=== PATIENT | male | born 1960 | race Caucasian/White ===

== ENCOUNTER 2018-11-18 07:25 | Outpatient (CLI) | payer BC ==
--- NOTE | 2018-11-18 08:37 | MRI ---
MRI of left knee performed without contrast HISTORY: Left knee pain and swelling. COMPARISON: None. FINDINGS: The anterior as well as posterior cruciate ligaments are intact. There is some increased si gnal change of the root of the posterior horn of the lateral meniscus suggesting some fraying or a low grade tear. No meniscal protrusion is seen associated with this. The medial meniscus shows a nondisplaced flap type tear involving the free edge of the posterior horn with horizontal extension of the tear into the body of the meniscus. The free edge of the body of the meniscus is minimally blunted. 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 The medial and lateral collateral ligaments and iliotibial band regions are normal. The patellar articular cartilage is intact. The medial lateral patellar retinaculum are normal. Quadr iceps and patellar tendons are normal. IMPRESSION: 1. Mild increased signal change of the root of the posterior horn lateral meniscus suggesting a small re-tear or fraying of the meniscus at this level. 2. Flap type tear of the posterior horn and body region of the medial meniscus. The tear appears to b egin is a free edge tear involving the posterior horn with horizontal extension into the body of the meniscus to the meniscocapsular junction. 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 There are marrow edema changes involving the medial edge of the tibia associated with some grade IV chondromalacia change and a small subchond ral insufficiency fracture.
== END 2018-11-18 07:26 | disposition home or self-care (01) ==
LOC: BICMRI 07:25
PROVIDERS: ATTEND Orthopaedic Surgery
DX: M25.562 Pain in left knee (principal); S83.242A Other tear of medial meniscus, current injury, left knee, initial encounter; R60.0 Localized edema; M94.262 Chondromalacia, left knee; M84.48XA Pathological fracture, other site, initial encounter for fracture

== ENCOUNTER 2023-07-02 06:23 | Day surgery (SDC) | payer BC ==
[2023-07-01 12:59] VITALS: BMI 33.7
[~2023-07-02 06:23] MED LIST: Fluorouracil 100 MG, EPINEPHrine 0.3 MG in Ophthalmic Irrigation Solution 500 ML IRR SCH
[2023-07-02] MEDS ORDERED: Cyclopentolate 1% Opth Drop 2 ML BOT ONE (06:41)
[2023-07-02] MEDS ORDERED: PHENYLephrine 2.5% Ophth Soln 15 ml Bottle ONE (06:41)
[2023-07-02] MEDS ORDERED: PROPOFOL 20 ML ONE (06:45)
[2023-07-02] MEDS ORDERED: fentaNYL 50 mcg/mL 1 mL Vial ONE (06:45)
[2023-07-02] MEDS ORDERED: Midazolam HCl 2 mg/2 ml Vial ONE ×2 (06:45→07:00)
[2023-07-02] MEDS ORDERED: Bupivacaine 0.75% 10 ML VIAL ONE (07:19)
[2023-07-02] MEDS ORDERED: CEFAZOLIN 1 GM VIAL ONE (07:19)
[2023-07-02] MEDS ORDERED: Lidocaine 4% PF 5 ML AMP ONE (07:19)
[2023-07-02] MEDS ORDERED: Triamcinolone 40 MG/ML VIAL ONE (07:19)
[2023-07-02] MEDS ORDERED: Maxitrol 0.1% Opth Oint 3.5 GM TUBE ONE (07:19)
[2023-07-02] MEDS ORDERED: Lidocaine 1% PF 5 ML VIAL ONE (07:19)
== END 2023-07-02 09:01 | disposition home or self-care (01) ==
LOC: SDC 06:23
PROVIDERS: ATTEND Ophthalmology Retina Specialist
PROC: 089530Z Drainage of Left Vitreous with Drainage Device, Percutaneous Approach (ICD-10-PCS; principal; 2023-07-02)
DX: H33.022 Retinal detachment with multiple breaks, left eye (principal); Z88.1 Allergy status to other antibiotic agents
CPT/HCPCS: 67025; J0171; J0690; J2250; J2704; J3010; J3301; J3490; J9190